=== PATIENT | female | born 1940 | race Caucasian/White ===

== ENCOUNTER 2016-09-17 19:20 | Inpatient (IN) | payer OTHER, MEDICAID ==
[~2016-09-17] VITALS: Ht 170.2 cm; Wt 54.4 kg
[2016-09-17] MEDS ORDERED: MORPHINE SULFATE 4 MG/ML CPJ (NOT FOR IM USE) IV STA (19:42)
[2016-09-17] MEDS ORDERED: ONDANSETRON HCL 4MG/2ML VIAL IV STA (19:42)
[2016-09-17] MEDS ORDERED: ACETAMINOPHEN 325MG TABLET PO STA (19:42)
[2016-09-17 20:09] LABS: BASOPHILS % 0.3 % (0.0-2.0); EOSINOPHILS % 0.3 % (0.0-5.0); HEMATOCRIT. 40.1 % (36.0-48.0); HEMOGLOBIN. 13.7 g/dL (12.0-16.0); LYMPHOCYTES % 7.7 % (20.0-50.0); MEAN CORPUSCULAR HEMOGLOBIN 30.6 pg (28.0-32.0); MEAN CORPUSCULAR VOLUME 89.4 fL (81.0-99.0); MEAN PLATELET VOLUME 7.6 fl (7.4-10.4); MONOCYTES % 5.2 % (2.0-8.0); NEUTROPHILS % 86.5 % (40.0-76.0); PLATELET 170 x1000/uL (130-400); RED BLOOD CELL COUNT 4.48 mill/uL (4.2-5.4); RED CELL DISTRIBUTION WIDTH 12.7 % (11.6-14.6)
[2016-09-17 20:16] LABS: INR 1.1; PROTHROMBIN TIME 11.2 sec
[2016-09-17 20:26] LABS: CARBON DIOXIDE 30 mEq/L (21-32); CHLORIDE 103 mEq/L (98-107); TROPONIN I < 0.02 ng/mL (0.00-0.04)
[2016-09-17] MEDS ORDERED: POTASSIUM CHLORIDE 20MEQ TABLET SR PO ONE (20:45)
[2016-09-17] MEDS ORDERED: LEVOFLOXACIN 750MG PREMIX 150 ML IV ONE (20:45)
[2016-09-17] MEDS ORDERED: SODIUM CHLORIDE 0.9% 1,000 ML IV ONE (21:25)
[2016-09-17] MEDS ORDERED: POTASSIUM CHLORIDE INJ 40 MEQ in DEXT 5% WATER 250 ML IV NR (22:00)
[2016-09-17 22:35] LABS: CLARITY URINE CLEAR (CLEAR); COLOR URINE YELLOW (YELLOW); KETONES URINE NEGATIVE (NEGATIVE); LEUKOCYTE ESTERASE URINE NEGATIVE (NEGATIVE); NITRITE URINE NEGATIVE (NEGATIVE); OCCULT BLOOD URINE NEGATIVE (NEGATIVE); PROTEIN URINE NEGATIVE (NEGATIVE); SPECIFIC GRAVITY URINE 1.019 (1.005-1.030); UROBILINOGEN URINE 0.2 E.U./dL (0.2-1.0)
[2016-09-17] MEDS ORDERED: PROPOFOL 200MG/20ML VIAL IV ONE (22:55)
[2016-09-18] MEDS ORDERED: PROPOFOL 200MG/20ML VIAL IV ONE
[2016-09-18] MEDS ORDERED: GABA-529 PO (08:52)
[2016-09-18] MEDS ORDERED: MECL-109 PO (08:52)
[2016-09-18] MEDS ORDERED: ATOR20TA65 PO (08:52)
[2016-09-18] MEDS ORDERED: HYDR25TA PO (08:52)
[2016-09-18 09:12] LABS: CHLORIDE 107 mEq/L (98-107)
[2016-09-18 09:14] LABS: BASOPHILS % 0.4 % (0.0-2.0); EOSINOPHILS % 0.6 % (0.0-5.0); HEMOGLOBIN. 13.6 g/dL (12.0-16.0); LYMPHOCYTES % 16.5 % (20.0-50.0); MEAN PLATELET VOLUME 7.5 fl (7.4-10.4); MONOCYTES % 7.4 % (2.0-8.0); NEUTROPHILS % 75.1 % (40.0-76.0); PLATELET 152 x1000/uL (130-400); RED BLOOD CELL COUNT 4.39 mill/uL (4.2-5.4)
[2016-09-18 09:20] LABS: CARBON DIOXIDE 26 mEq/L (21-32)
[2016-09-18] MEDS ORDERED: MECLIZINE 25MG TABLET PO PRN (13:00)
[2016-09-18] MEDS ORDERED: HYDROCHLOROTHIAZIDE 25MG TABLET PO SCH (14:00)
[2016-09-18] MEDS: GABAPENTIN 100MG CAPSULE PO SCH ×2 (15:44→21:20)
[2016-09-18] MEDS ORDERED: ATORVASTATIN CALCIUM 20MG TABLET PO SCH (21:00)
[2016-09-18 21:56] VITALS: BP 128/74
== END 2016-09-18 22:32 | disposition home or self-care (01) | DRG 563 ==
LOC: ER 21:00 → 6WST 23:57 → EDBEDREQ 09-18 00:12 → EDBEDREQSVC 09-18 00:12 → EDBEDREQ 09-18 00:16 → ENRESERV 09-18 01:28 → 6WST 09-18 05:04
PROVIDERS: ADMIT Family Medicine; ATTEND Family Medicine
PROC: 0RSJXZZ Reposition Right Shoulder Joint, External Approach (ICD-10-PCS; principal; 2016-09-17)
DX: S43.034A Inferior dislocation of right humerus, initial encounter (principal); D64.9 Anemia, unspecified; I10 Essential (primary) hypertension; W18.30XA Fall on same level, unspecified, initial encounter; E87.6 Hypokalemia; Y93.89 Activity, other specified; Y92.89 Other specified places as the place of occurrence of the external cause; Y99.8 Other external cause status
CPT/HCPCS: 23650; 36415; 70450; 71010; 73030; 80053; 81001; 83605; 84478; 84484; 85025; 85610; 87040; 87086; 93005; 96361; 96365; 96375; 99152; 99285; J1956; J2270; J2405; J2704; J3480; J7030; J7060; L3670